=== PATIENT | female | born 1990 | race Hispanic/Latino ===

== ENCOUNTER 2018-03-13 17:22 | Emergency (ER) | payer SELFPAY ==
[2018-03-13 17:41] VITALS: BMI 24.5
--- NOTE | 2018-03-13 18:59 | ED PDOC ---
Arrival/HPI - General Historian: Patient <Manny Stephens - Last Filed: 03/13/18 19:10> - History of Present Illness Time/Duration: < week Symptom Onset: Sudden Symptom Course: Unchanged Context: Exertion, Home <Morris Serrano - Last Filed: 03/13/18 20:55> - General Chief Complaint: Abdominal Pain Time Seen by Provider: 03/13/18 18:12 - History of Present Illness Narrative History of Present Illness (Text): 03/13/18 18:46 This is a 27yo [place] F, A1, 6 months , who presents with left suprapubic and left lower quadrant abdominal pain x2 days. Reports pain began yesterday, intermittently present, worse with walking or laying left lateral recumbent, not present when lying supine or right lateral recumbent. Denies radiation of pain, fevers, chills, dysuria, urinary frequency, vaginal discharge , vaginal bleeding, gush of fluids, or abnormal contractions. Pain not worse with urination or moving bowels, not exacerbated with bending at the midline, no radiation down to leg, no nausea/emesis, and no sense of pressure at site of pain. [place] tourist visiting friend, admits to walking excessively yesterday due to touring several areas, did not adequately hydrate. 1 prior , by D&C, approximately 1 year ago. Denies any hx of STD or nephrolithiasis. Denies any medical hx, denies any surgeries other than the D&C, denies any regular medication use. Admits to prior tobacco use, 3-4 cigarettes daily x7 years, stopped when determined she was with this . Does admit to smoking a marijuana joint yesterday, intermittently prior to that ( unable or unwilling to be more specific). All other symptoms in 12-system review negative. Of note, [place] citizen here as tourist in [place]. Last saw her OBGyn 2 weeks ago, reports underwent ultrasound assessment at that time and was told everything was fine. PMH: as above PSH: D&C 1 yr ago Fam Hx: Denies Soc Hx: tobacco abuse (3-4 cigarettes daily x7 yrs, quit at onset of ) , denies alcohol, admits illicits (marijuana intermittently, last used yesterday ). [place] citizen, follows PMD and [facility] in [place], just here as tourist. ( Manny Stephens) Past Medical History - Infectious Disease Hx of Infectious Diseases: None - Psychiatric Hx Substance Use: No <Manny Stephens - Last Filed: 03/13/18 19:10> - Provider Review Nursing Documentation Reviewed: Yes - Travel History Have you recently traveled outside [place] w/in the past 3 mons?: No - Past History Past History: No Previous - Reproductive Currently : Yes <Morris Serrano - Last Filed: 03/13/18 20:55> Family/Social History Family/Social History: No Known Family HX Smoking Status: Never Smoked Hx Alcohol Use: No Hx Substance Use: No <Manny Stephens - Last Filed: 03/13/18 19:10> Hx Substance Use Treatment: No <Morris Serrano - Last Filed: 03/13/18 20:55> Allergies/Home Meds <Manny Stephens - Last Filed: 03/13/18 19:10> <Morris Serrano - Last Filed: 03/13/18 20:55> Allergies/Adverse Reactions: Allergies No Known Allergies Allergy (Verified 03/13/18 18:45) Home Medications: Home Meds Medication Instructions Recorded Confirmed No Known Home Med 03/13/18 03/13/18 Review of Systems - Physician Review All systems were reviewed & negative as marked: Yes (as per HPI) <Manny Stephens - Last Filed: 03/13/18 19:10> - Review of Systems Constitutional: Normal Eyes: Normal ENT: Normal Respiratory: Normal. absent: SOB Cardiovascular: Normal. absent: Chest Pain Gastrointestinal: Abdominal Pain (left lower abd). absent: Nausea, Vomiting Genitourinary Female: absent: Dysuria, Frequency, Vaginal Bleeding, Vaginal Discharge Musculoskeletal: Normal Skin: Normal Neurological: Normal Endocrine: Normal Hemo/Lymphatic: Normal Psychiatric: Normal <ZachMorris - Last Filed: 03/13/18 20:55> Physical Exam Vital Signs Reviewed: Yes Temperature: Afebrile Blood Pressure: Normal Pulse: Regular Respiratory Rate: Normal Appearance: Positive for: Well-Appearing, Non-Toxic, Comfortable Pain Distress: Mild Mental Status: Positive for: Alert and Oriented X 3 - Systems Exam Head: Present: Atraumatic, Normocephalic Pupils: No: Pinpoint Extroacular Muscles: Present: EOMI. No: Gaze Palsy, Entrapment Conjunctiva: Present: Normal. No: Injected, Icteric Mouth: Present: Moist Mucous Membranes, Normal Lips, Normal Tounge, Normal Teeth. No: Dry, Drooling Pharnyx: Present: Normal Nose (External): Present: Atraumatic. No: Abrasion, Laceration Nose (Internal): Present: No Active Bleeding. No: Epistaxis Neck: Present: Normal Range of Motion. No: JVD Respiratory/Chest: Present: Clear to Auscultation, Good Air Exchange. No: Respiratory Distress, Accessory Muscle Use, Wheezes, Rales, Rhonchi Cardiovascular: Present: Regular Rate and Rhythm, Normal S1, S2. No: Murmurs, Irregular Rhythm, Tachycardic, Bradycardic Abdomen: Present: Tenderness (tenderness to palpation mildly along midline suprapubic region and left lower quadrant, not extending to flank or back, no CVA tenderness), Normal Bowel Sounds. No: Distention, Guarding, Mass/ Organomegaly Back: Present: Normal Inspection. No: CVA Tenderness, Midline Tenderness, Pain with Leg Raise Upper Extremity: Present: Normal Inspection, Normal ROM, NORMAL PULSES. No: Cyanosis, Edema, Tenderness, Swelling, Erythema Lower Extremity: Present: Normal Inspection, NORMAL PULSES, Normal ROM. No: Edema, CALF TENDERNESS, Cyanosis, Tenderness, Swelling, Erythema Neurological: Present: GCS=15, CN II-XII Intact, Speech Normal, Motor Func Grossly Intact, Normal Sensory Function Skin: Present: Warm, Dry, Normal Color. No: Rashes Lymphatic: No: Cervical Adenopathy Psychiatric: Present: Alert, Oriented x 3, Normal Insight, Normal Concentration , Normal Affect, Normal Mood <Manny Stephens - Last Filed: 03/13/18 19:10> Vital Signs Temp Pulse Resp BP Pulse Ox 03/13/18 20:25 98.4 F 80 16 115/58 L 99 03/13/18 17:40 98.5 F 81 18 103/66 98 Medical Decision Making Re-evaluation Time: 19:00 Reassessment Condition: Re-examined, Unchanged <Manny Stephens - Last Filed: 03/13/18 19:10> - Lab Interpretations I have reviewed the lab results: Yes Interpretation: All labs normal <Morris Serrano - Last Filed: 03/13/18 20:55> ED Course and Treatment: 03/13/18 19:16 Ddx: musculoskeletal pain (cramping 2/2 dehydration) vs abnormal lay vs UTI vs Nephrolithiasis Lack of flank pain, dysuria, hematuria, radiating pain, and mildness of pain make pyelo and nephrolithiasis less likely, will obtain UA to rule out UTI. Tylenol for pain. Given > 20 weeks, must transfer. Spoke with Dr. Boothe at [facility], who accepts patient. Nursing contacting transport to arrange transfer. Patient aware of transfer requirement , understand reasoning and agrees, EMTALA form filled out and signed by resident , patient, and witnessed by nursing. Patient seen, reviewed, and discussed with attending, Dr. Serrano. (Manny Stephens) 03/13/18 1930 I performed the hx and physical exam of the patient and discussed their mgt with the RESIDENT. I reviewed the RESIDENT's NOTE and agree with the assessment and plan of care. pt is comfortable appearing pt is not in any distress abd: noted faint left lower abd/groin tenderness, no masses/rebound/guarding, appropriate abd distention due to preg; + BS, soft back: no cvat b/l pt is able to ambulate with ease Dr Stephens spoke to Dr Boothe at [facility] for L&D eval, accepted patient, pt will be transferred to [facility] for further eval pt is made aware of her medical results pt will be transferred to [facility] ([place]) (Morris Serrano) - Lab Interpretations Lab Results: Lab Results 03/13/18 18:45: Urine Color Yellow, Urine Appearance Clear, Urine pH 6.5, Ur Specific [place] 1.020, Urine Protein Negative, Urine Glucose (UA) Negative, Urine Ketones Negative, Urine Blood Negative, Urine Nitrate Negative, Urine Bilirubin Negative, Urine Urobilinogen 0.2, Ur Leukocyte Esterase Negative - Medication Orders Current Medication Orders: Discontinued Medications Acetaminophen (Tylenol 325mg Tab) 650 mg PO STAT STA Stop: 03/13/18 19:01 Last Admin: 03/13/18 19:18 Dose: 650 mg MAR Pain/Vitals Document 03/13/18 19:18 AD (Rec: 03/13/18 19:18 [id number] Pain Reassessment Is This A Pain ReAssessment? No Presence of Pain Presence of Pain Yes Disposition/Present on Arrival - Present on Arrival Any Indicators Present on Arrival: No History of DVT/PE: No History of Uncontrolled Diabetes: No Urinary Catheter: No History of Decub. Ulcer: No History Surgical Site Infection Following: None - Disposition Have Diagnosis and Disposition been Completed?: Yes Disposition Time: 17:20 Patient Plan: Transfer To ([facility]) <Manny Stephens - Last Filed: 03/13/18 19:10> <Morris Serrano - Last Filed: 03/13/18 20:55> - Disposition Diagnosis: Abdominal pain affecting Disposition: Transfer [facility] Condition: FAIR Forms: [facility] ([place]an)
[2018-03-13 19:23] LABS: PH,URINE 6.5 (4.7-8.0); URINE BILIRUBIN NEGATIVE (NEGATIVE); URINE BLOOD NEGATIVE (NEGATIVE); URINE GLUCOSE (UA) NEGATIVE (NEGATIVE); URINE LEUKOCYTE ESTERASE NEGATIVE Leu/uL (NEGATIVE); URINE PROTEIN NEGATIVE mg/dL (<30 mg/dL); URINE UROBILINOGEN 0.2 E.U./dL (<1 E.U./dL)
[2018-03-13 19:28] LABS: URINE APPEARANCE CLEAR (CLEAR); URINE COLOR YELLOW (YELLOW)
[2018-03-13 20:25] VITALS: BP 115/58; PULSE 80; RESP 16; TEMP 98.4; O2SAT 99
== END 2018-03-13 20:20 | disposition short-term general hospital (02) ==
LOC: ED 17:22
DX: O26.92 Pregnancy related conditions, unspecified, second trimester (principal); R10.9 Unspecified abdominal pain; Z3A.00 Weeks of gestation of pregnancy not specified